=== PATIENT | male | born 1975 | race African-American/Black ===

== ENCOUNTER 2023-04-17 08:29 | Emergency (ER) | payer OTHER ==
[~2023-04-17] VITALS: Ht 182.9 cm; Wt 74.8 kg
[2023-04-17 08:37] VITALS: BP 156/69; O2SAT 97
--- NOTE | 2023-04-17 08:40 | NUR ---
PATIENT CAME WITH LT KNEE SWELLING AND PAIN.ALERT AND ORIENTED.ON ROOM AIR
--- NOTE | 2023-04-17 08:50 | NUR ---
DR CUENCA AT PATIENT SIDE.
[2023-04-17] MEDS ORDERED: KETOROLAC TROMETHAMINE 15 MG/ML VIAL ONE (09:14)
--- NOTE | 2023-04-17 09:20 | NUR ---
EMT AT PATIENT SIDE FOR APPLY KNEE IMMOBILIZER
[2023-04-17] MEDS ORDERED: KETOROLAC TROMETHAMINE INJ 30 MG/ML VIAL IM ONE (09:30)
[2023-04-17] MEDS ORDERED: IBUP-1955 PO (09:38)
== END 2023-04-17 09:59 | disposition home or self-care (01) ==
LOC: ER 08:32
DX: S83.92XA Sprain of unspecified site of left knee, initial encounter (principal); W07.XXXA Fall from chair, initial encounter; Y93.89 Activity, other specified; Y92.89 Other specified places as the place of occurrence of the external cause; Y99.8 Other external cause status
CPT/HCPCS: 99283; 29505; 96372; J1885